=== PATIENT | male | born 1995 | race Caucasian/White ===

== ENCOUNTER 2017-02-07 12:18 | Emergency (ER) | payer MEDICAID ==
[2017-02-07 13:10] VITALS: BP 130/69
[2017-02-07] MEDS ORDERED: HYDROmorphone 1 MG/ML Syringe IM ONE (13:41)
[2017-02-07] MEDS ORDERED: Ketorolac 60 MG/2 ML SDV IM ONE (13:41)
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
== END 2017-02-07 16:25 | disposition home or self-care (01) ==
LOC: JP.ED 12:18
DX: S32.019A Unspecified fracture of first lumbar vertebra, initial encounter for closed fracture (principal); X58.XXXA Exposure to other specified factors, initial encounter
CPT/HCPCS: 71250; 74176; 96372; 99284; J1170; J1885

== ENCOUNTER 2022-08-27 00:32 | Emergency (ER) | payer SELFPAY ==
[2022-08-27 00:45] VITALS: BP 166/106; PULSE 100
== END 2022-08-27 01:00 | disposition home or self-care (01) ==
LOC: JP.ED 00:32
DX: H60.391 Other infective otitis externa, right ear (principal); F17.210 Nicotine dependence, cigarettes, uncomplicated
CPT/HCPCS: 99282

== ENCOUNTER 2022-08-28 19:48 | Emergency (ER) | payer SELFPAY ==
[2022-08-28 20:11] VITALS: BP 172/107; PULSE 127
[2022-08-28] MEDS ORDERED: Levofloxacin/Dextrose 5%-Water 750 MG in Premix Bag 1 BAG IV ONE (20:28)
[2022-08-28] MEDS ORDERED: methylPREDNISolone Sodium Succinate 125 MG/2 ML SDV IVPUSH ONE (20:30)
[2022-08-28] MEDS ORDERED: Ketorolac 30 MG/ML SDV IVPUSH ONE (20:30)
== END 2022-08-28 22:32 | disposition home or self-care (01) ==
LOC: JP.ED 19:48
DX: H60.391 Other infective otitis externa, right ear (principal); Z72.0 Tobacco use
CPT/HCPCS: 96365; 96366; 96375; 99282; J1885; J1956; J2930

== ENCOUNTER 2022-08-29 17:43 | Emergency (ER) | payer SELFPAY ==
[2022-08-29 18:04] VITALS: BP 143/96; PULSE 116
[2022-08-29] MEDS ORDERED: Levofloxacin/Dextrose 5%-Water 750 MG in Premix Bag 1 BAG IV ONE (18:24)
== END 2022-08-29 18:44 | disposition home or self-care (01) ==
LOC: JP.ED 17:43
DX: H60.91 Unspecified otitis externa, right ear (principal); F17.210 Nicotine dependence, cigarettes, uncomplicated
CPT/HCPCS: 99282

== ENCOUNTER 2022-09-08 02:30 | Emergency (ER) | payer SELFPAY ==
[2022-09-08 03:09] VITALS: BP 146/100; PULSE 116
[2022-09-08] MEDS ORDERED: Sodium Chloride 0.9% 10 ML Syringe FLUSH PRN (03:18)
[2022-09-08] MEDS ORDERED: Levofloxacin/Dextrose 5%-Water 750 MG in Premix Bag 1 BAG IV ONE (03:18)
[2022-09-08] MEDS ORDERED: Hydrocortisone/Neomycin/Polymyxin B Otic Susp 10 ML Bottle EARRT ONE (03:40)
[2022-09-08] MEDS ORDERED: Ketorolac 30 MG/ML SDV IVPUSH ONE (04:01)
== END 2022-09-08 06:20 | disposition home or self-care (01) ==
LOC: JP.ED 02:30
DX: H60.391 Other infective otitis externa, right ear (principal); H66.91 Otitis media, unspecified, right ear; F17.210 Nicotine dependence, cigarettes, uncomplicated
CPT/HCPCS: 96365; 96375; 99283; A9270; J1885; J1956; J3490